=== PATIENT | female | born 1995 | race Caucasian/White ===

== ENCOUNTER 2020-03-22 07:54 | Emergency (ER) | payer OTHER ==
[2020-03-22 08:03] VITALS: BMI 31.6
[2020-03-22] MEDS ORDERED: ACETAMINOPHEN 325 MG TABLET (FP) PO ONE (09:00)
[2020-03-22] MEDS ORDERED: LIDOCAINE 5% TOPICAL PATCH TP ONE (09:00)
[2020-03-22] MEDS ORDERED: ACETAMINOPHEN 325 MG TABLET (FP) ONE (09:29)
[2020-03-22] MEDS ORDERED: LIDOCAINE 5% TOPICAL PATCH ONE (09:29)
[2020-03-22 10:45] VITALS: BP 124/67; PULSE 72; TEMP 98.2
[2020-03-22] MEDS ORDERED: LIDOCAINE PATCH REMOVAL MC ONE (22:00)
== END 2020-03-22 14:00 | disposition home or self-care (01) ==
LOC: JERFT 07:54
DX: M54.5 Low back pain (principal); V89.2XXA Person injured in unspecified motor-vehicle accident, traffic, initial encounter
CPT/HCPCS: 76815; 76815-TC; 99284-25

== ENCOUNTER 2020-06-23 12:25 | Inpatient (IN) | payer OTHER ==
[2020-06-23] MEDS: ELECTROLYTE-148 SOLN 1,000 ML IV SCH (13:00)
[2020-06-23 13:44] VITALS: BMI 35.2
[2020-06-23 13:48] LABS: BASO % 0.7 % (0-2.0); EOS % 0.8 % (0-4.5); HEMATOCRIT 26.8 % (32.4-45.2); HEMOGLOBIN 8.5 GM/dL (10.7-15.3); LYMPH % 17.5 % (8-40); MCH 25.2 pg (25.7-33.7); MCHC 31.8 g/dl (32.0-36.0); MEAN CELL VOLUME 79.1 fl (80-96); MEAN PLT VOLUME 8.5 fl (7.5-11.1); MONO % 6.8 % (3.8-10.2); NEUT % 74.2 % (42.8-82.8); PLATELET COUNT 158 K/MM3 (134-434); RBC 3.39 M/mm3 (3.60-5.2); RDW 17.9 % (11.6-15.6); WHITE BLOOD COUNT 6.1 K/mm3 (4.0-10.0)
[2020-06-23 13:55] LABS: INR 1.07 (0.83-1.09); PROTHROMBIN TIME (PATIENT) 13.1 SEC (9.7-13.0)
[2020-06-23] MEDS ORDERED: CITRIC ACID/SODIUM CITRATE 30 ML UNIT-DOSE CUP PO ONE (14:01)
[2020-06-23 14:20] LABS: BLOOD UREA NITROGEN 9.7 mg/dL (7-18); CREATININE 0.4 mg/dL (0.55-1.3)
[2020-06-23 14:37] LABS: POTASSIUM 3.8 mmol/L (3.5-5.1)
[2020-06-23 14:38] LABS: CALCIUM 8.5 mg/dL (8.5-10.1)
[2020-06-23] MEDS ORDERED: DEXAMETHASONE SOD PHOSPHATE 4 MG/1 ML VIAL ONE (14:38)
[2020-06-23] MEDS ORDERED: PHENYLEPHRINE HCL 10 MG/1 ML SINGLE DOSE VIAL ONE ×2 (14:38)
[2020-06-23] MEDS ORDERED: ONDANSETRON 4 MG/2 ML VIAL ONE (14:38)
[2020-06-23] MEDS ORDERED: OXYTOCIN 10 UNITS/ML VIAL ONE (14:38)
[2020-06-23] MEDS ORDERED: ceFAZolin SODIUM 1 GM VIAL ONE (14:39)
[2020-06-23] MEDS ORDERED: METHYLERGONOVINE MALEATE 0.2 MG/1 ML AMP IM PRN (16:06)
[2020-06-23] MEDS ORDERED: BENZOCAINE 28 GM HEMORRHOIDAL OINTMENT PR PRN (16:06)
[2020-06-23] MEDS ORDERED: SIMETHICONE 80 MG TAB.CHEW (FP) PO PRN (16:06)
[2020-06-23] MEDS ORDERED: oxyCODONE HCL 5 MG TABLET PO PRN ×2 (16:06)
[2020-06-23] MEDS ORDERED: WITCH HAZEL 50% (TUCKS) 40 PAD/JAR PAD TP PRN (16:06)
[2020-06-23] MEDS ORDERED: diphenhydrAMINE HCL 25 MG CAPSULE (FP) PO PRN (16:06)
[2020-06-23] MEDS ORDERED: BENZOCAINE 20% 57 GM BOTTLE TP PRN (16:06)
[2020-06-23] MEDS ORDERED: IBUPROFEN 800 MG/8 ML IJ IVPB PRN (16:06)
[2020-06-23] MEDS ORDERED: OXYTOCIN 20 UNITS in 0.9% NS 20 UNIT/1,000 ML INFUS.BAG IV SCH (16:15)
[2020-06-23] MEDS ORDERED: ONDANSETRON 4 MG/2 ML VIAL IVPUSH PRN (16:25)
[2020-06-23] MEDS: DEXTROSE 5%-LACTATED RINGERS 1,000 ML IV SCH (16:42)
[2020-06-23 16:47] LABS: CORD BASE EXCESS -5.1 mmol/L (0-2); CORD HCO3 20.5 mmHg (20-29); CORD PCO2 40.1 mmHg (30-78); CORD pH 7.327 (7.14-7.44)
[2020-06-23 16:52] LABS: CORD HCO3 24.3 mmHg (20-29); CORD PCO2 59.2 mmHg (30-78); CORD pH 7.232 (7.14-7.44)
[2020-06-23] MEDS ORDERED: OXYTOCIN 20 UNITS in 0.9% NS 20 UNIT/1,000 ML INFUS.BAG IV ONE (17:05)
[2020-06-23] MEDS ORDERED: IBUPROFEN 800 MG/8 ML IJ IVPB ONE (17:14)
[2020-06-23] MEDS: CEFAZOLIN 1 GM/D5W 1 GM/50 ML BAG IVPB SCH (19:15)
[2020-06-24] MEDS: CEFAZOLIN 1 GM/D5W 1 GM/50 ML BAG IVPB SCH (02:17)
[2020-06-24 08:33] LABS: BASO % 0.3 % (0-2.0); EOS % 0.3 % (0-4.5); HEMATOCRIT 26.7 % (32.4-45.2); HEMOGLOBIN 8.3 GM/dL (10.7-15.3); LYMPH % 10.1 % (8-40); MCHC 31.2 g/dl (32.0-36.0); MEAN CELL VOLUME 80.1 fl (80-96); MEAN PLT VOLUME 8.5 fl (7.5-11.1); NEUT % 83.3 % (42.8-82.8); PLATELET COUNT 160 K/MM3 (134-434); RBC 3.34 M/mm3 (3.60-5.2); RDW 18.4 % (11.6-15.6); WHITE BLOOD COUNT 7.2 K/mm3 (4.0-10.0)
[2020-06-24] MEDS: ACETAMINOPHEN 325 MG TABLET (FP) PO PRN ×2 (09:48→21:46)
[2020-06-24] MEDS: ENOXAPARIN NA (PORCINE) 40 MG/0.4 ML DISP.SYRIN SQ SCH (09:48)
[2020-06-24] MEDS: IBUPROFEN 600 MG TABLET (FP) PO PRN ×2 (09:49→21:46)
[2020-06-24] MEDS ORDERED: BISACODYL 10 MG SUPP.RECT PR PRN (16:07)
[2020-06-24] MEDS: DEXTROSE 5%-LACTATED RINGERS 1,000 ML IV SCH (21:48)
[2020-06-24] MEDS: ELECTROLYTE-148 SOLN 1,000 ML IV SCH (21:48)
[2020-06-25] MEDS: ENOXAPARIN NA (PORCINE) 40 MG/0.4 ML DISP.SYRIN SQ SCH (09:42)
[2020-06-25 11:30] VITALS: BP 117/82; PULSE 78; TEMP 98.2
[2020-06-25] MEDS ORDERED: SENNOSIDES/DOCUSATE COMBO (SENNA PLUS) TABLET (UD) PO PRN (22:00)
== END 2020-06-25 12:15 | disposition home or self-care (01) | DRG 540 ==
LOC: JLDR 12:25 → J3W 17:30
PROVIDERS: ADMIT Obstetrics & Gynecology; ATTEND Obstetrics & Gynecology
PROC: 10D00Z1 Extraction of Products of Conception, Low, Open Approach (ICD-10-PCS; principal; 2020-06-23)
DX: O32.1XX0 Maternal care for breech presentation, not applicable or unspecified (principal); O48.0 Post-term pregnancy; O99.013 Anemia complicating pregnancy, third trimester; Z3A.40 40 weeks gestation of pregnancy; Z37.0 Single live birth
CPT/HCPCS: 36415; 36600; 80048; 82803; 85025; 85610; 85730; 86780; 86850; 86900; 86901; 86922; 88307-TC; C9803; U0003

== ENCOUNTER 2022-06-16 11:02 | Emergency (ER) | payer OTHER ==
[2022-06-16 11:21] VITALS: BP 129/81; PULSE 69; RESP 20; TEMP 97.8; BMI 29.0
[2022-06-16] MEDS ORDERED: diphenhydrAMINE HCL 25 MG CAPSULE (FP) PO ONE ×2 (13:02→13:05)
== END 2022-06-16 13:07 | disposition home or self-care (01) ==
LOC: JERFT 11:02 → JER 11:02 → JERFT 13:07
DX: R21 Rash and other nonspecific skin eruption (principal)
CPT/HCPCS: 36415; 87593; 99283-25

== ENCOUNTER 2023-08-31 13:35 | Emergency (ER) | payer OTHER ==
[2023-08-31 13:43] VITALS: RESP 20; BMI 29.9
[2023-08-31 14:48] LABS: BASO % 0.6 % (0-2.0); EOS % 2.4 % (0-4.5); HEMOGLOBIN 10.5 GM/dL (10.7-15.3); LYMPH % 22.7 % (8-40); MCH 26.4 pg (25.7-33.7); MEAN CELL VOLUME 82.7 fl (80-96); MEAN PLT VOLUME 7.9 fl (7.5-11.1); MONO % 7.5 % (3.8-10.2); NEUT % 66.8 % (42.8-82.8); PLATELET COUNT 177 10^3/uL (134-434); RBC 3.99 M/mm3 (3.60-5.2); RDW 16.5 % (11.6-15.6); WHITE BLOOD COUNT 6.7 K/mm3 (4.0-10.0)
[2023-08-31 14:54] LABS: HCG,QUALITATIVE URINE Positive
[2023-08-31 14:57] LABS: EPI CELLS >36 /uL (0-25.1); HYALINE CASTS 4 /uL (0-3.1); URINE APPEARANCE CLOUDY; URINE BACTERIA 4797 /uL (0-1359); URINE BILIRUBIN NEGATIVE (NEGATIVE); URINE COLOR YELLOW; URINE GLUCOSE (UA) NEGATIVE (NEGATIVE); URINE KETONE 1+ (NEGATIVE); URINE LEUK ESTERASE NEGATIVE (NEGATIVE); URINE NITRITE NEGATIVE (NEGATIVE); URINE PROTEIN 1+ (NEGATIVE); URINE WBC 17 /uL (0-25.8)
[2023-08-31 15:04] LABS: ACTIVATED PTT 32.7 SECONDS (25.2-36.5); INR 1.17 (0.83-1.09); PROTHROMBIN TIME (PATIENT) 13.2 SEC (9.7-13.0)
[2023-08-31 15:10] LABS: POTASSIUM 4.1 mmol/L (3.5-5.1)
[2023-08-31 15:12] LABS: BLOOD UREA NITROGEN 10.2 mg/dL (7-18); CALCIUM 9.5 mg/dL (8.5-10.1)
[2023-08-31 15:16] LABS: CREATININE 0.5 mg/dL (0.55-1.3)
[2023-08-31 15:43] LABS: URINE CRYSTALS PRESENT /hpf; URINE RBC 98.2 /uL (0-23.9); YEAST NONE SEEN (NEGATIVE)
[2023-08-31] MEDS ORDERED: CEPHALEXIN MONOHYDRATE 500 MG CAPSULE (UD) ONE (18:06)
[2023-08-31 18:09] VITALS: BP 133/81; PULSE 83; TEMP 98.1
[2023-08-31] MEDS: CEPHALEXIN MONOHYDRATE 500 MG CAPSULE (UD) PO ONE (18:10)
== END 2023-08-31 18:12 | disposition home or self-care (01) ==
LOC: JER 13:35
DX: O20.9 Hemorrhage in early pregnancy, unspecified (principal); Z3A.01 Less than 8 weeks gestation of pregnancy
CPT/HCPCS: 36415; 76817-TC; 80048; 81003; 84702; 84703; 85025; 85610; 85730; 86850; 86900; 86901; 87086; 99284-25

== ENCOUNTER 2023-12-09 21:13 | Emergency (ER) | payer SELFPAY ==
[2023-12-09 21:21] VITALS: BP 116/74; PULSE 85; RESP 18; TEMP 98.6; BMI 33.3
[2023-12-09] MEDS ORDERED: IBUPROFEN 600 MG TABLET (FP) PO ONE (22:53)
[2023-12-09] MEDS: IBUPROFEN 600 MG TABLET (FP) PO ONE (22:56)
== END 2023-12-09 22:57 | disposition home or self-care (01) ==
LOC: JERFT 21:13
DX: S93.402A Sprain of unspecified ligament of left ankle, initial encounter (principal); W10.8XXA Fall (on) (from) other stairs and steps, initial encounter
CPT/HCPCS: 73610-TC-LT-FY; 99283-25